=== PATIENT | female | born 1995 | race Two or more races ===

== ENCOUNTER → 2016-06-27 | Emergency (ER) ==
[~2016-06-27] VITALS: Ht 167.6 cm; Wt 98.0 kg
[~2016-06-27] MED LIST: COPA1INJ SC; ESCI10TA2 PO; FLAG500T PO; GENT3OPD OS; MECL-86 PO; TRINTAB PO
[2016-06-27 18:19] VITALS: BP 148/81
== END | disposition home or self-care (01) ==
LOC: M ED 18:53
DX: J02.9 Acute pharyngitis, unspecified (principal); Z53.21 Procedure and treatment not carried out due to patient leaving prior to being seen by health care provider

== ENCOUNTER 2016-07-27 14:20 | Emergency (ER) | payer OTHER ==
[~2016-07-27] VITALS: Ht 170.2 cm; Wt 99.8 kg
[~2016-07-27 14:20] MED LIST changes: -FLAG500T PO; -GENT3OPD OS
[2016-07-27 14:21] VITALS: BP 132/84
[2016-07-27] MEDS ORDERED: metroNIDAZOLE (FLAGYL) 500 MG TAB PO ONE (15:45)
[2016-07-27] MEDS ORDERED: FLUORESCEIN OPHTH 1 MG STRIP OS ONE (15:45)
[2016-07-27] MEDS ORDERED: TETRACAINE 0.5% OPHTH SOLN 4ML OS ONE (15:45)
[2016-07-27] MEDS ORDERED: GENT3OPD OS (17:04)
[2016-07-27] MEDS ORDERED: FLAG500T PO (17:04)
[2016-07-27] MEDS ORDERED: GENTAMICIN 0.3% OPHTH SOL 5 ML BTL OS ONE (17:15)
== END 2016-07-27 17:17 | disposition home or self-care (01) ==
LOC: M ED 16:14
DX: S05.02XA Injury of conjunctiva and corneal abrasion without foreign body, left eye, initial encounter (principal); W50.0XXA Accidental hit or strike by another person, initial encounter; Y92.89 Other specified places as the place of occurrence of the external cause; Y93.89 Activity, other specified; Y99.8 Other external cause status; N76.0 Acute vaginitis; Z79.899 Other long term (current) drug therapy; Z79.3 Long term (current) use of hormonal contraceptives; G51.0 Bell's palsy; G35 Multiple sclerosis; F32.9 Major depressive disorder, single episode, unspecified

== ENCOUNTER 2016-10-25 10:30 | Emergency (ER) | payer OTHER ==
[~2016-10-25] VITALS: Ht 167.6 cm; Wt 95.5 kg
[~2016-10-25 10:30] MED LIST changes: +FLAG500T PO; +GENT3OPD OS; -TRINTAB PO; +TRINTAB3 PO
[2016-10-25 12:02] VITALS: BP 118/79
[2016-10-25 12:05] LABS: BASO # 0.1 K/mm3 (0.0-0.2); BASO % 0.8 % (0.0-1.0); EOS # 0.2 K/mm3 (0.0-0.50); EOS % 2.3 % (0.0-3.0); LARGE UNSTAINED CELL # 0.1 K/mm3 (0.0-0.4); LARGE UNSTAINED CELL % 1.4 % (0.0-4.0); LYMPH # 2.3 K/mm3 (1.5-6.5); LYMPH % 25.7 % (24.0-44.0); MEAN CORPUSCULAR HEMOGLOBIN 30.3 pg (27.0-33.0); MONO # 0.3 K/mm3 (0.0-0.8); MONO % 3.4 % (0.0-5.0); NEUTROPHILS # 5.5 K/mm3 (1.8-7.7); NEUTROPHILS % 65.2 % (36.0-66.0); PLATELET COUNT, AUTOMATED 258 k/mm3 (150-450); RED CELL DISTRIBUTION WIDTH 12.8 % (11.5-14.5); WHITE BLOOD COUNT 8.4 K/mm3 (4.0-10.0)
[2016-10-25 12:24] LABS: CONTROL LINE HCG INT CTR LINE PRESENT
[2016-10-25 12:30] LABS: ANION GAP 5 MEQ/L (8-16); BLOOD UREA NITROGEN 10 MG/DL (7-18); CALCIUM LEVEL 9.3 MG/DL (8.5-10.1); CARBON DIOXIDE LEVEL 26 MEQ/L (21-32); CHLORIDE LEVEL 111 MEQ/L (98-107); CREATININE FOR GFR 0.72 MG/DL (0.55-1.02); GLOMERULAR FILTRATION RATE > 60.0 (>60); GLUCOSE, FASTING 88 MG/DL (70-105); POTASSIUM SERUM 3.4 MEQ/L (3.5-5.1); SODIUM LEVEL 142 MEQ/L (136-145)
[2016-10-25] MEDS ORDERED: ACETAMINOPHEN TAB 650MG DOSE (2X325MG) PO ONE (14:15)
== END 2016-10-25 14:12 | disposition home or self-care (01) ==
LOC: M ED 10:30 → EDBD 10:30 → M ED 14:12
DX: F41.9 Anxiety disorder, unspecified (principal); R53.83 Other fatigue; R41.3 Other amnesia; G35 Multiple sclerosis; F33.8 Other recurrent depressive disorders

== ENCOUNTER 2017-01-27 14:26 | Emergency (ER) | payer OTHER ==
[~2017-01-27] VITALS: Ht 170.2 cm; Wt 95.5 kg
[2017-01-27] MEDS ORDERED: MECLIZINE 25 MG TABLET PO ONE (17:15)
[2017-01-27] MEDS ORDERED: NS 500 ML IV ONE (17:15)
[2017-01-27 18:12] LABS: BASO % 0.3 % (0.0-1.0); EOS % 0.1 % (0.0-3.0); IMMATURE GRANULOCYTE % 0.3 % (0-0); LYMPH # 0.6 10^3/uL (1.5-6.5); LYMPH % 4.9 % (24.0-44.0); MEAN CORPUSCULAR HEMOGLOBIN 29.6 pg (27.0-33.0); MEAN CORPUSCULAR HGB CONC 33.3 g/dl (32.0-36.5); MEAN CORPUSCULAR VOLUME 89.1 fl (80.0-96.0); MONO # 0.3 10^3/uL (0.0-0.8); MONO % 2.8 % (0.0-5.0); NEUTROPHILS # 11.2 10^3/uL (1.8-7.7); NEUTROPHILS % 91.6 % (36.0-66.0); PLATELET COUNT, AUTOMATED 221 10^3/uL (150-450); RED CELL DISTRIBUTION WIDTH 13.1 % (11.5-14.5); WHITE BLOOD COUNT 12.3 10^3/uL (4.0-10.0)
[2017-01-27 18:15] LABS: ADD MORPHOLOGY? NO
[2017-01-27 18:28] LABS: CONTROL LINE HCG INT CTR LINE PRESENT
[2017-01-27 18:33] LABS: ANION GAP 7 MEQ/L (8-16); BLOOD UREA NITROGEN 10 MG/DL (7-18); CALCIUM LEVEL 8.4 MG/DL (8.5-10.1); CARBON DIOXIDE LEVEL 26 MEQ/L (21-32); CHLORIDE LEVEL 109 MEQ/L (98-107); CREATININE FOR GFR 0.55 MG/DL (0.55-1.02); GLOMERULAR FILTRATION RATE > 60.0 (>60); GLUCOSE, FASTING 81 MG/DL (70-105); POTASSIUM SERUM 3.7 MEQ/L (3.5-5.1); SODIUM LEVEL 142 MEQ/L (136-145)
[2017-01-27] MEDS ORDERED: KETOROLAC 30 MG/ML VIAL (J1885) IV ONE (18:45)
--- NOTE | 2017-01-27 19:10 | REPUSA ---
CLINICAL HISTORY: CVA. TECHNIQUE: Multiple axial brain CT scan sections were obtained from base to vertex without contrast a dministration. COMMENTS: The study shows normal configuration of sella turcica. There are no intra or extra-axial collections. There is no mass effect or midline shift. There is no evidence of hematoma formation. No hydrocephal us is present. No abnormal calcifications are noted. No significant abnormalities are seen either in the posterior fossa or supratentorial compartment. The sinuses and mastoid air cells are patent. IMPRESSION: No evidence of acute intracranial pathology. Consider follow-up with MRI if clinically warranted Thank you for your kind referral of this patient.
[2017-01-27] MEDS ORDERED: METOCLOPRAMIDE INJ 10MG/2ML VIAL (J2765) IV ONE (19:30)
[2017-01-27] MEDS ORDERED: IBUP40TA PO (19:35)
[2017-01-27 19:41] LABS: METHADONE URINE NEGATIVE (NEGATIVE)
[2017-01-27 20:26] VITALS: BP 148/90
== END 2017-01-27 20:27 | disposition home or self-care (01) ==
LOC: M ED 14:26
DX: G43.909 Migraine, unspecified, not intractable, without status migrainosus (principal); G35 Multiple sclerosis; Z79.899 Other long term (current) drug therapy; Z88.0 Allergy status to penicillin
CPT/HCPCS: 36415; 70450; 80048; 80307; 84703; 85025; 96361; 96374; 96375; 99284; J1885; J2765

== ENCOUNTER 2017-06-14 09:22 | Emergency (ER) | payer OTHER | END 2017-06-14 11:02 | disposition home or self-care (01) | LOC: M ED 09:22 | DX: J01.90 Acute sinusitis, unspecified (principal); H10.9 Unspecified conjunctivitis; G35 Multiple sclerosis; Z86.69 Personal history of other diseases of the nervous system and sense organs; F32.9 Major depressive disorder, single episode, unspecified; Z79.899 Other long term (current) drug therapy | CPT/HCPCS: 99283 ==

== ENCOUNTER 2017-09-02 09:53 | Emergency (ER) | payer OTHER ==
[2017-09-02 10:50] LABS: KETONE, URINE AUTO RFX NEGATIVE (NEGATIVE); LEUKOCYTE ESTERASE UR AUTO RFX 3+ (NEGATIVE); MUCUS, URINE RFX SMALL (NEGATIVE); NITRITE, URINE AUTO RFX NEGATIVE (NEGATIVE); RBC, URINE AUTO RFX 4 /HPF (0-3); SPECIFIC GRAVITY UR AUTO RFX 1.013 (1.002-1.035); SQUAM EPITHELIAL CELL UR AURFX 6 /HPF (0-6); WBC, URINE AUTO RFX 9 /HPF (0-3)
[2017-09-02] MEDS: AZITHROMYCIN 250 MG TAB PO (11:15)
[2017-09-02] MEDS: cefTRIAXone SOD 1 GM VIAL (J0696) IM (11:15)
[2017-09-02 12:24] LABS: CHLAMYDIA DNA AMPLIFICATION NEGATIVE (NEGATIVE); GC DNA AMPLIFICATION NEGATIVE (NEGATIVE)
== END 2017-09-02 11:58 | disposition home or self-care (01) ==
LOC: M ED 09:53
DX: A56.02 Chlamydial vulvovaginitis (principal); K60.2 Anal fissure, unspecified; F41.9 Anxiety disorder, unspecified; Z86.69 Personal history of other diseases of the nervous system and sense organs; Z79.899 Other long term (current) drug therapy
CPT/HCPCS: J0696

== ENCOUNTER 2017-10-22 11:15 | Emergency (ER) | payer OTHER ==
[2017-10-22 12:19] LABS: BASO # 0.1 10^3/uL (0.0-0.2); BASO % 0.5 % (0.0-1.0); EOS # 0.2 10^3/uL (0.0-0.50); EOS % 1.5 % (0.0-3.0); HEMATOCRIT 40.6 % (36.0-47.0); HEMOGLOBIN 13.9 g/dl (12.0-15.5); IMMATURE GRANULOCYTE % 0.5 % (0-3.0); LYMPH # 2.6 10^3/uL (1.5-6.5); LYMPH % 22.6 % (24.0-44.0); MEAN CORPUSCULAR HEMOGLOBIN 29.8 pg (27.0-33.0); MEAN CORPUSCULAR HGB CONC 34.2 g/dl (32.0-36.5); MEAN CORPUSCULAR VOLUME 87.1 fl (80.0-96.0); MONO # 0.7 10^3/uL (0.0-0.8); MONO % 5.6 % (0.0-5.0); NEUTROPHILS # 8.1 10^3/uL (1.8-7.7); NEUTROPHILS % 69.3 % (36.0-66.0); PLATELET COUNT, AUTOMATED 281 10^3/uL (150-450); RED BLOOD COUNT 4.66 10^6/uL (4.00-5.40); RED CELL DISTRIBUTION WIDTH 13.4 % (11.5-14.5); WHITE BLOOD COUNT 11.6 10^3/uL (4.0-10.0)
[2017-10-22 12:39] LABS: ANION GAP 6 MEQ/L (8-16); BLOOD UREA NITROGEN 5 MG/DL (7-18); CALCIUM LEVEL 8.7 MG/DL (8.5-10.1); CARBON DIOXIDE LEVEL 28 MEQ/L (21-32); CHLORIDE LEVEL 107 MEQ/L (98-107); CREATININE FOR GFR 0.47 MG/DL (0.55-1.30); GLOMERULAR FILTRATION RATE > 60.0 (>60); GLUCOSE, FASTING 80 MG/DL (70-100); POTASSIUM SERUM 3.9 MEQ/L (3.5-5.1); SODIUM LEVEL 141 MEQ/L (136-145)
[2017-10-22 17:12] LABS: CHLAMYDIA DNA AMPLIFICATION NEGATIVE (NEGATIVE); GC DNA AMPLIFICATION NEGATIVE (NEGATIVE)
== END 2017-10-22 16:05 | disposition home or self-care (01) ==
LOC: M ED 11:15
DX: Z32.01 Encounter for pregnancy test, result positive (principal); O36.8991 Maternal care for other specified fetal problems, unspecified trimester, fetus 1; O99.351 Diseases of the nervous system complicating pregnancy, first trimester; G51.0 Bell's palsy; G35 Multiple sclerosis; Z3A.01 Less than 8 weeks gestation of pregnancy; Z79.899 Other long term (current) drug therapy
CPT/HCPCS: 76801